=== PATIENT | female | born 1960 | race African-American/Black ===

== ENCOUNTER 2021-10-04 06:10 | Day surgery (SDC) | payer BC, OTHER ==
[2021-09-27 13:10] VITALS: BMI 30.1
[2021-10-04 06:43] VITALS: TEMP 97.1
[2021-10-04] MEDS ORDERED: LIDOCAINE HCL 1%, 10 MG/ML (20ML VIAL) ONE (07:18)
[2021-10-04] MEDS ORDERED: BUPIVACAINE HCL/PF 0.25% (2.5MG/ML) 10 ML VIAL ONE (07:18)
[2021-10-04] MEDS ORDERED: LIDOCAINE HCL 1%, 10 MG/ML (20ML VIAL) NR ONE ×3 (07:27→08:08)
[2021-10-04] MEDS ORDERED: BUPIVACAINE HCL/PF 0.5% (5MG/ML) 10 ML VIAL IJ ONE ×3 (07:27→08:08)
[2021-10-04] MEDS ORDERED: ceFAZolin SODIUM 1 GM VIAL IVPB ONE ×2 (07:27→08:00)
[2021-10-04] MEDS ORDERED: MIDAZOLAM HCL 2 MG/2 ML SINGLE DOSE VIAL ONE ×2 (07:57)
[2021-10-04] MEDS ORDERED: SUCCINYLCHOLINE CHLORIDE 200 MG/10 ML SYRINGE ONE (07:58)
[2021-10-04] MEDS ORDERED: PROPOFOL 20 ML ONE ×3 (07:58)
[2021-10-04 09:28] VITALS: BP 143/92; PULSE 65
== END 2021-10-04 09:46 | disposition home or self-care (01) ==
LOC: FASU 06:10
PROVIDERS: ATTEND Orthopaedic Surgery
PROC: 0LN70ZZ Release Right Hand Tendon, Open Approach (ICD-10-PCS; 2021-10-04)
PROC: 0LN70ZZ Release Right Hand Tendon, Open Approach (ICD-10-PCS; principal; 2021-10-04 08:00)
DX: M65.331 Trigger finger, right middle finger (principal); M65.341 Trigger finger, right ring finger
CPT/HCPCS: 94760